=== PATIENT | female | born 2000 | race Caucasian/White ===

== ENCOUNTER → 2025-05-17 | Outpatient (CLI) | payer OTHER, SELFPAY ==
--- NOTE | 2025-05-17 11:30 | US_ITS ---
PROCEDURE: EXT NON VASC LIMITED/SOFT TISS 05/17/2025 REASON FOR EXAM: R/O POSTERIOR RT KNEE BAKERS CYST TECHNIQUE: Procedure Code: [id number] Modality: US Procedure: EXT NON VASC LIMITED/SOFT TISS US/Ext Non Vasc Limited/Soft Tiss IMPRESSION: Within the posterior right knee, no fluid collection such as Smith's cyst is no crystal. Patent vessels. Reading Location: [id number]
--- OUTSIDE RECORDS SUMMARY | 2025-05-17 11:30 | XMS RPT_ITS | CCD ---
Author Organization [facility] Care Team Providers Care Medical Chief Technician Name Role Phone Unavailable Primary Care Provider Unavailabl e SELF Referring Unavailable SINTIA CAMPBELL Attending Unavailable Medications Current Medications Medication Drug Class(es) Dates Sig (Normalized) Sig (Original) predniSONE 20 mg oral tablet (1 source) Start: 10-19-2024 End: 10-24-2024 take 1 tablet by mouth twice daily predniSONE (DELTASONE) 20 mg tablet Indications: Carpal tunnel syndrome, bilateral Take 1 tablet by mouth two times a day for 5 days. 10 tablet 10/19/2024 10/24/2024 Active Problems Problem Classification Problem Date Documented Da te Episodic/Chronic Menstrual disorders (2 sources) Irregular periods; Translations: [Irregular menstruation, unspecified] Onset: 10-19-2024 10-19-2024 Chronic Other nervous system disorders (1 source) Bilateral carpal tunnel syndrome; Translations: [Carpal tunnel syndrome, bilateral upper limbs] 10-19-2024 Chronic Other nervous system disorders (1 source) Carpal tunnel syndrome, bilateral upper limbs; Translations: [Carpal tunnel syndrome, bilateral] Onset: 10-19-2024 Chronic Results Test Name Value Interpretation Reference Range Facil justinrosita Darien 10-19-2024 CNOV Office Visit (UCUPNO ) KATIE MCNAIR ([id number]) 89 F Date Time Provider Department 10/19/24 12:35 PM SINTIA CAMPBELL During your visit today, we recorded the following information about you: Temperature Pulse Respiration Blood pressure 98 degrees 83/minute 18/minute 100/63 Weight Last Period 60.1 kg 08/02/24 Sintia Campbell APRN.LUANA 10/19/2024 1:30 PM Addendum I believe you have carpal tunnel syndrome. This is flared from painting and over use. I will give Prednisone 20 mg twice daily for 5 days for pain and inflammation. Wear bilateral wrist splints Follow up with orthopedics TYLENOL AND/OR IBUPROFEN FOR PAIN [facility] [address] [facility], [address], [place] [phone] [facility] [address] [facility] [place] [phone] You have irregular periods and declined a test today. You had a home test yesterday and have seen your network intern from [facility] in [place] for this problem. Follow up with her. Kelsy Ag MA 10/19/2024 1:43 PM Signed I fit the patient for vinh wrist splints per provider order. Pt tolerated well. JULEE Nelson Wendy, APRN.LUANA 10/19/2024 1:43 PM Signed [facility] Subjective Katie Mcnair is a 23 year old female. Patient presents with: Musculoskeletal Problem: Pain/tingling in the R thumb/index/middle finger with hand swelling and pain into the forearm. She does get symptoms in the L as well, but the R is the worse. She states that this happens every night, but this is the worse. Weight Problem: Gaining weight Menstrual Problem: Cycles have been irregular. It has been roughly 3 months since last. She did see her AUDIO TAPE LIBRARIAN who did testing and said everything looked fine. Presents today for bilateral ear wrist and forearm pain. Reports the right 1 is worse. 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 Has tingling to her fingers and the pain extends up her forearm on the right arm at this time. Also has had gained 7 kg as she went from 53 kg to 60 kg in the last 2 to 3 months. Does have irregular menses and has seen her FIBRE CEMENT MOULDER from [facility] and she had done a bunch of blood work and checked her for and she was not . Patient reports she did a home test yesterday and she was not . Declines testing today. Encouraged her to continue to follow-up with her FIBRE CEMENT MOULDER and she can manage her irregular menses. Patient verbalizes understanding. Reports is from [facility] and moved to the [place] was already negative in 2022 and reports since August 2023 she has had irregular periods. Musculoskeletal Problem Review of Systems Genitourinary: Irregular menses Musculoskeletal: Bilateral wrist and forearm pain with tingling to fingers. Right is worse Objective BP 100/63 Pulse 83 Temp 36.7 ?C (98 ?F) Resp 18 Wt 60.1 kg (132 lb 7.9 oz) LMP 08/02/2024 (Approximate) SpO2 100% Physical Exam Vitals and nursing note reviewed. Constitutional: Appearance: Normal appearance. HENT: Head: Normocephalic and atraumatic. Right Ear: Tympanic membrane, ear canal and external ear normal. Left Ear: Tympanic membrane, ear canal and external ear normal. Nose: Nose normal. Mouth/Throat: Mouth: Mucous membranes are moist. Eyes: Extraocular Movements: Extraocular movements intact. Conjunctiva/sclera: Conjunctivae normal. Pupils: Pupils are equal, round, and reactive to light. Cardiovascular: Rate and Rhythm: Normal rate and regular rhythm. Pulses: Normal pulses. Heart sounds: Normal heart sounds. Pulmonary: Effort: Pulmonary effort is normal. Breath sounds: Normal breath sounds. Abdominal: General: Abdomen is flat. Bowel sounds are normal. Palpations: Abdomen is soft. Musculoskeletal: General: Normal range of motion. Cervical back: Normal range of motion and neck supple. Comments: Phalen's test positive Skin: General: Skin is warm and dry. Capillary Refill: Capillary refill takes 2 to 3 seconds. Neurological: General: No focal deficit present. Mental Status: She is alert and oriented to person, place, and time. Psychiatric: Mood and Affect: Mood normal. Behavior: Behavior normal. {ASSESSMENT/PLAN: 1. Carpal tunnel syndrome, bilateral - ICD9: 354.0, ICD10: G56.03 (primary diagnosis) - WRIST SPLINT-bilateral - PREDNISONE 20 MG TABLET -follow up with ortho 2. Irregular menses - ICD9: 626.4, ICD10: N92.6 -follow up with OBNEY Campbell APRN.DISK OPERATOR Disposition The patient was discharged. Referring Provider: SELF [200] Allergies As of Date: 10/19/2024 (No Known Allergies) Date Reviewed: 10/19/2024 Reviewed by: Sintia Campbell APRN.CNP - Fully Assessed Reason for Visit: Musculoskeletal Problem [69] Cmt: Pain/t (more content not included)... [facility] Vital Signs Date Time Vital Sign Value Performing Clinician Marcie rodrigues 10-19-2024 12:52-0400 Body temperature 98.01 [degF] Sintia Campbell APRN.DISK OPERATOR Work Phone: [facility] 10-19-2024 12:52-0400 Body weight 60.1 kg Sintia Campbell APRN.DISK OPERATOR Work Phone: [facility] 10-19-2024 12:52-0400 Diastolic blood pressure 63 mm[Hg] Sintia Campbell APRN.DISK OPERATOR Work Phone: [facility] 10-19-2024 12:52-0400 Heart rate 83 /min Sintia Campbell APRN.DISK OPERATOR Work Phone: [facility] 10-19-2024 12:52-0400 Respiratory rate 18 /min Sintia Campbell APRN.DISK OPERATOR Work Phone: [facility] 10-19-2024 12:52-0400 SaO2% (BldA) [Mass fraction] 100 % Sintia Campbell APRN.DISK OPERATOR Work Phone: [facility] 10-19-2024 12:52-0400 Systolic blood pressure 100 mm[Hg] Sintia Campbell APRN.DISK OPERATOR Work Phone: [facility] Encounters Encounter Date Encounter Type Care Provider Facility Start: 10-19-2024 End: 10-19-2024 ambulatory SELF Facility:[id number] Start: 10-19-2024 End: 10-19-2024 Patient encounter procedure Sintia Campbell APRN.LUANA Work Phone: [facility] Comment on above: Carpal tunnel syndro me, bilateral (Primary Dx); Irregular menses Plan of Treatment Date Care Activity Detail Author Start: 02-03-2025 Influenza vaccination Influenz a Vaccine (Season Ended) [facility] Start: 02-04-2024 Covid-19 Vaccine ( season) Covid-19 Vaccine ( season) [facility] Start: 12-18-2020 Screening for malign ant neoplasm of cervix Cervical Cancer Screening [facility] Start: 12-18-2018 Hepatitis B Vaccine (1 of 3 - 19+ 3-dose series) Hepatitis B Vaccine (1 of 3 - 19+ 3-dose series) [facility] Start: 12-18-2018 Urine microalbumin profile DTa P,Tdap,Td Vaccine (1 - Tdap) [facility] Start: 12-18-2017 Anxiety Screening Anxiety Screening [facility] Start: 12-18-2017 Depression Screening Depression Scre ening [facility] Start: 12-18-2017 Hepatitis C screening Hepatitis C Sc reening [facility] Start: 12-18-2017 HIV screening HIV Screening [facility] Start: 12-18-2014 HPV Vaccine (1 - 3-d ose series) HPV Vaccine (1 - 3-dose series) [facility] Start: 12-18-2013 Peds To Adult Transi tion Annual Assessment Peds To Adult Transition Annual Assessment [facility] Start: 2011 Peds To Adult Transi tion Initial Discussion Peds To Adult Transition Initial Discussion [facility] Social History Date Type Detail Facility Start: 10-19-2024 Tobacco smoking stat us NHIS Never smoked tobacco [facility] Start: 10-19-2024 Tobacco use and exposure Smoke less tobacco non-user [facility] Start: 10-19-2024 Alcoholic beverage intake Ex-drinker (finding) [facility] Start: 10-19-2024 History of Social function [facility] Start: 10-19-2024 Tobacco use panel [facility] Start: 1999 [facility] assigned at [facility] Progress note 10-19-2024 Note Date & Type Note Facility 10-19-2024 Note HNO ID: [id number] Author: SINTIA CAMPBELL APRN.DISK OPERATOR Service: ? Author Type: Nurse Practitioner Type: Progress Notes Filed: 10/19/2024 13:43 Note Text: [facility] Subjective Katie Mcnair is a 23 year old female. Patient presents with: Musculoskeletal Problem: Pain/tingling in the R thumb/index/middle finger with hand swelling and pain into the forearm. She does get symptoms in the L as well, but the R is the worse. She states that this happens every night, but this is the worse. Weight Problem: Gaining weight Menstrual Problem: Cycles have been irregular. It has been roughly 3 months since last. She did see her AUDIO TAPE LIBRARIAN who did testing and said everything looked fine. Presents today for bilateral ear wrist and forearm pain. Reports the right 1 is worse. 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 Has tingling to her fingers and the pain extends up her forearm on the right arm at this time. Also has had gained 7 kg as she went from 53 kg to 60 kg in the last 2 to 3 months. Does have irregular menses and has seen her FIBRE CEMENT MOULDER from [facility] and she had done a bunch of blood work and checked her for and she was not . Patient reports she did a home test yesterday and she was not . Declines testing today. Encouraged her to continue to follow-up with her FIBRE CEMENT MOULDER and she can manage her irregular menses. Patient verbalizes understanding. Reports is from [facility] and moved to the [place] was already negative in 2022 and reports since August 2023 she has had irregular periods. Musculoskeletal Problem Review of Systems Genitourinary: Irregular menses Musculoskeletal: Bilateral wrist and forearm pain with tingling to fingers. Right is worse Objective BP 100/63 Pulse 83 Temp 36.7 ?C (98 ?F) Resp 18 Wt 60.1 kg (132 lb 7.9 oz) LMP 08/02/2024 (Approximate) SpO2 100% Physical Exam Vitals and nursing note reviewed. Constitutional: Appearance: Normal appearance. HENT: Head: Normocephalic and atraumatic. Right Ear: Tympanic membrane, ear canal and external ear normal. Left Ear: Tympanic membrane, ear canal and external ear normal. Nose: Nose normal. Mouth/Throat: Mouth: Mucous membranes are moist. Eyes: Extraocular Movements: Extraocular movements intact. Conjunctiva/sclera: Conjunctivae normal. Pupils: Pupils are equal, round, and reactive to light. Cardiovascular: Rate and Rhythm: Normal rate and regular rhythm. Pulses: Normal pulses. Heart sounds: Normal heart sounds. Pulmonary: Effort: Pulmonary effort is normal. Breath sounds: Normal breath sounds. Abdominal: General: Abdomen is flat. Bowel sounds are normal. Palpations: Abdomen is soft. Musculoskeletal: General: Normal range of motion. Cervical back: Normal range of motion and neck supple. Comments: Phalen's test positive Skin: General: Skin is warm and dry. Capillary Refill: Capillary refill takes 2 to 3 seconds. Neurological: General: No focal deficit present. Mental Status: She is alert and oriented to person, place, and time. Psychiatric: Mood and Affect: Mood normal. Behavior: Behavior normal. {ASSESSMENT/PLAN: 1. Carpal tunnel syndrome, bilateral - ICD9: 354.0, ICD10: G56.03 (primary diagnosis) - WRIST SPLINT-bilateral - PREDNISONE 20 MG TABLET -follow up with ortho 2. Irregular menses - ICD9: 626.4, ICD10: N92.6 -follow up with EMI Campbell APRN.DISK OPERATOR Disposition The patient was discharged. [facility] History of Present illness Narrative 10-19-2024 Sintia Campbell APRN.CNP - 10/19/2024 1:31 PM EDTKelsy Ag MA - 10/19/2024 1:21 PM EDT Note Date & Type Note Facility 10-19-2024 History of Presen t illness Narrative [facility] Subjective Katie Mcnair is a 23 year old female. Patient presents with: Musculoskeletal Problem: Pain/tingling in the R thumb/index/middle finger with hand swelling and pain into the forearm. She does get symptoms in the L as well, but the R is the worse. She states that this happens every night, but this is the worse. Weight Problem: Gaining weight Menstrual Problem: Cycles have been irregular. It has been roughly 3 months since last. She did see her AUDIO TAPE LIBRARIAN who did testing and said everything looked fine. Presents today for bilateral ear wrist and forearm pain. Reports the right 1 is worse. 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 Has tingling to her fingers and the pain extends up her forearm on the right arm at this time. Also has had gained 7 kg as she went from 53 kg to 60 kg in the last 2 to 3 months. Does have irregular menses and has seen her FIBRE CEMENT MOULDER from [facility] and she had done a bunch of blood work and checked her for and she was not . Patient reports she did a home test yesterday and she was not . Declines testing today. Encouraged her to continue to follow-up with her FIBRE CEMENT MOULDER and she can manage her irregular menses. Patient verbalizes understanding. Reports is from [facility] and moved to the [facility] was already negative in 2022 and reports since August 2023 she has had irregular periods. Musculoskeletal Problem Review of Systems Genitourinary: Irregular menses Musculoskeletal: Bilateral wrist and forearm pain with tingling to fingers. Right is worse Objective BP 100/63 Pulse 83 Temp 36.7 C (98 F) Resp 18 Wt 60.1 kg (132 lb 7.9 oz) LMP 08/02/2024 (Approximate) SpO2 100% Physical Exam Vitals and nursing note reviewed. Constitutional: Appearance: Normal appearance. HENT: Head: Normocephalic and atraumatic. Right Ear: Tympanic membrane, ear canal and external ear normal. Left Ear: Tympanic membrane, ear canal and external ear normal. Nose: Nose normal. Mouth/Throat: Mouth: Mucous membranes are moist. Eyes: Extraocular Movements: Extraocular movements intact. Conjunctiva/sclera: Conjunctivae normal. Pupils: Pupils are equal, round, and reactive to light. Cardiovascular: Rate and Rhythm: Normal rate and regular rhythm. Pulses: Normal pulses. Heart sounds: Normal heart sounds. Pulmonary: Effort: Pulmonary effort is normal. Breath sounds: Normal breath sounds. Abdominal: General: Abdomen is flat. Bowel sounds are normal. Palpations: Abdomen is soft. Musculoskeletal: General: Normal range of motion. Cervical back: Normal range of motion and neck supple. Comments: Phalen's test positive Skin: General: Skin is warm and dry. Capillary Refill: Capillary refill takes 2 to 3 seconds. Neurological: General: No focal deficit present. Mental Status: She is alert and oriented to person, place, and time. Psychiatric: Mood and Affect: Mood normal. Behavior: Behavior normal. {ASSESSMENT/PLAN: 1. Carpal tunnel syndrome, bilateral - ICD9: 354.0, ICD10: G56.03 (primary diagnosis) - WRIST SPLINT-bilateral - PREDNISONE 20 MG TABLET -follow up with ortho 2. Irregular menses - ICD9: 626.4, ICD10: N92.6 -follow up with OBGYN Sintia Campbell APRN.LUANA Disposition The patient was discharged. I fit the patient for vinh wrist splints per provider order. Pt tolerated well. Kelsy Ag MA documented in this encounter [facility] Progress note 10-19-2024 Note Date & Type Note Facility 10-19-2024 Note HNO ID: [id number] Author: KELSY AG MA Service: ? Author Type: Corn Miller Type: Progress Notes Filed: 10/19/2024 13:43 Note Text: I fit the patient for vinh wrist splints per provider order. Pt tolerated well. Kelsy Ag MA [facility] Instructions 10-19-2024 Patient Instructions Note Date & Type Note Facility 10-19-2024 Instructions Sintia Campbell APRN.CNP - 10/19/2024 1:21 PM EDT I believe you have carpal tunnel syndrome. This is flared from painting and over use. I will give Prednisone 20 mg twice daily for 5 days for pain and inflammation. Wear bilateral wrist splints Follow up with orthopedics TYLENOL AND/OR IBUPROFEN FOR PAIN [facility] [address] [place] [address], [address] [facility], [place] [phone] [facility] [address] [place] [address] [phone] You have irregular periods and declined a test today. You had a home test yesterday and have seen your network intern from [facility] in [place] for this problem. Follow up with her. documented in this encounter [facility] Evaluation note Note Date & Type Note Facility Evaluation note Diagnosis Carpal tunnel syndrome, bilateral- Primary Carpal tunnel syndrome Irregular menses Irregular menstrual cycle documented in this encounter [facility] Summary Purpose Family History No Family History Records Found Advance Directives No Advanced Directives Records Found Additional Source Comments Source Comments (unrecognize d section and content) In the event this informatio n is protected by the Federal Confidentiality of Alcohol and Drug Abuse Patient Records regulations: The Federal rules restrict any use of the information to criminally investigate or prosecute any alcohol or drug abuse patient.[facility] Reason for Visit (unrecogniz ed section and content) Reason Comments Musculoskeletal Problem Pain/tingling in the R thumb/index/middle finger with hand swelling and pain into the forearm. She does get symptoms in the L as well, but the R is the worse. She states that this happens every night, but this is the worse. Weight Problem Gaining weight Menstrual Problem Cycles have been irr egular. It has been roughly 3 months since last.She did see her AUDIO TAPE LIBRARIAN who did testing and said everything looked fine. INFORMATION SOURCE (unrecogn ized section and content) DATE CREATED AUTHOR 10/20/2024 [facility] FOR RECORDS PERTAINING TO PATIENTS WHO ARE OR HAVE BEEN ENROLLED IN A CHEMICAL DEPENDENCY/SUBSTANCEABUSE PROGRAM, SOME INFORMATION MAY BE OMITTED. This clinical summary was aggregated from multiple sources. Caution should be exercised in using it in the provision of clinical care. This summary normalizes information from multiple sources, and as a consequence, information in this document may materially change the coding, format and clinical context of patient data. In addition, data may be omitted in some cases. CLINICAL DECISIONS SHOULD BE BASED ON THE PRIMARY CLINICAL RECORDS. [employer] provides no warranty or guarantee of the accuracy or completeness of information in this document.
== END | disposition home or self-care (01) ==
LOC: US 11:27
PROVIDERS: PCP Family Medicine; Referring Provider Family Medicine; Visit Provider Family Medicine
DX: M25.561 Pain in right knee (principal)
CPT/HCPCS: 76882